=== PATIENT | female | born 1975 | race African-American/Black ===

== ENCOUNTER 2022-08-29 14:43 | Emergency (ER) | payer SELFPAY ==
[2022-08-29 15:03] VITALS: BP 124/65; PULSE 80; RESP 18; TEMP 98; BMI 39.9
== END 2022-08-29 16:02 | disposition home or self-care (01) ==
LOC: JERFT 14:43
DX: L29.2 Pruritus vulvae (principal)
CPT/HCPCS: 36415; 87070; 87205; 87491; 87591; 87661; 99283-25